=== PATIENT | male | born 1965 | race Caucasian/White ===

== ENCOUNTER 2021-02-28 07:08 | Day surgery (SDC) | payer OTHER ==
[~2021-02-28] VITALS: Ht 152.4 cm; Wt 60.0 kg
[~2021-02-28 07:08] MED LIST: ASCO500 GT; BENZ0.5T44 GT; COGENTIN; DOCU-270 GT; DOCUSATE SODIUM; FAMO20 GT; LEVE500T20 GT; LIPITOR; MULT-264 GT; RINGERS SOLUTION,LACTATED 0 ML IV ONE; RINGERS SOLUTION,LACTATED 1,000 ML IV ONE; SILO8CAP2 GT; TEGRETOL; THERAPEUTIC; THORAZINE; VIT C; ZYPREXA; [UNRECOGNIZED DRUG - OTHER]
[2021-02-28] MEDS ORDERED: AMPICILLIN SODIUM 2 GM/NS 100 ML IV ONE (07:30)
== END 2021-02-28 07:20 ==
LOC: SURGERY 07:08
PROVIDERS: ATTEND Dentist General Practice
DX: K02.9 Dental caries, unspecified (principal); Z53.8 Procedure and treatment not carried out for other reasons
CPT/HCPCS: 36415; J0290; J7120